=== PATIENT | male | born 1955 | race Caucasian/White ===

== ENCOUNTER 2019-10-20 14:17 | Outpatient (CLI) | payer MEDICARE, OTHER ==
[2019-10-20 16:21] LABS: Hemoglobin 14.5 g/dL (14.0-18.0); Mean Corpuscular HGB CONC 33.7 g/dL (32.0-36.0); Mean Corpuscular Hemoglobin 32.5 pg (27.0-31.0); Mean Corpuscular Volume 96.6 fL (78.0-98.0); Mean Platelet Volume 6.9 fL (7.4-10.4); Platelet Count 237 thou/uL (130-400); RBC Distribution Width 12.4 % (11.5-14.5); Red Blood Cell (RBC) Count 4.45 mill/uL (4.70-6.10); White Blood Cell (WBC) Count 9.5 thou/uL (4.8-10.8)
[2019-10-20 16:43] LABS: Anion Gap 14 mmol/L (10-20); BUN (Urea Nitrogen) 19 mg/dL (8.4-25.7); Calc. Creatinine Clearance 0 mL/min (70-130); Calcium 9.2 mg/dL (7.8-10.44); Carbon Dioxide 28 mmol/L (23-31); Chloride 98 mmol/L (98-107); Estimated GFR-MDRD 49; Glucose 90 mg/dL (80-115); Sodium 136 mmol/L (136-145)
--- NOTE | 2019-10-22 15:23 | EKG ---
Test Reason : Blood Pressure : / mmHG Vent. Rate : 064 BPM Atrial Rate : 064 BPM P-R Int : 188 ms QRS Dur : 114 ms QT Int : 390 ms P-R-T Axes : 021 037 067 degrees QTc Int : 402 ms Normal sinus rhythm Cannot rule out Anterior infarct , age undetermined Abnormal ECG No previous ECGs available Confirmed by DR. Niesha KING ([id number]) on 10/22/2019 3:23:20 PM Referred By: ZEESHAN Confirmed By:DR. Niesha KING
== END 2019-10-20 14:18 | disposition home or self-care (01) ==
LOC: LABBT 14:17
PROVIDERS: ATTEND Thoracic Surgery (Cardiothoracic Vascular Surgery)
DX: Z01.812 Encounter for preprocedural laboratory examination (principal); I65.29 Occlusion and stenosis of unspecified carotid artery
CPT/HCPCS: 80048; 85027; 93005; 93010

== ENCOUNTER 2019-10-20 15:00 | Inpatient (IN) | payer MEDICARE, OTHER ==
[2019-10-21] MEDS ORDERED: Fentanyl 100 MCG/2 ML VIAL ONE ×5 (06:30→14:28)
[2019-10-21] MEDS ORDERED: Phenylephrine HCL 10 MG/ML VIAL ONE (06:30)
[2019-10-21] MEDS ORDERED: Midazolam HCl 2 mg/2 ml Vial ONE (06:30)
[2019-10-21] MEDS ORDERED: Heparin 5,000 UNITS/ML VIAL ONE (06:32)
[2019-10-21] MEDS ORDERED: Protamine Sulfate 50 MG/5 ML VIAL ONE ×2 (06:32→08:52)
[2019-10-21] MEDS ORDERED: Protamine Sulfate 250 MG/25 ML VIAL ONE (08:52)
[2019-10-21] MEDS ORDERED: Lidocaine 1% PF 5 ML VIAL ONE (09:01)
[2019-10-21] MEDS ORDERED: Rocuronium Bromide 10 MG/ML (10ML VIAL) ONE (09:01)
[2019-10-21] MEDS ORDERED: Labetalol HCl 100 MG/20 ML VIAL ONE (09:01)
[2019-10-21] MEDS ORDERED: Ondansetron PF 4 MG/2 ML Vial ONE (09:01)
[2019-10-21] MEDS ORDERED: Succinylcholine Chloride 20 MG/ML 10 ml SYRINGE FS ONE (09:01)
[2019-10-21] MEDS ORDERED: Dexamethasone 20 MG/5 ML VIAL ONE (09:01)
[2019-10-21] MEDS ORDERED: PROPOFOL 200 MG/20 ML VIAL ONE (09:01)
[2019-10-21] MEDS ORDERED: Acetaminophen 325 MG TAB PO PRN (09:21)
[2019-10-21] MEDS ORDERED: Ondansetron PF 4 MG/2 ML Vial IVP PRN (09:21)
[2019-10-21] MEDS ORDERED: Fentanyl 100 MCG/2 ML VIAL SLOW IVP PRN ×2 (09:21)
[2019-10-21] MEDS ORDERED: Nitroglycerin 50 MG/250 ML BOT 250 ML IVPB PRN (09:21)
[2019-10-21] MEDS ORDERED: HYDROcodone/Acetaminophen 5/325 mg Tablet PO PRN ×2 (09:21)
[2019-10-21] MEDS ORDERED: Phenylephrine 10 MG/NS 250 ML 250 ML IVPB PRN (09:21)
[2019-10-21] MEDS ORDERED: hydrALAZINE 20 MG/ML VIAL ONE ×2 (09:37→11:40)
--- NOTE | 2019-10-21 13:19 | OP ---
DATE OF PROCEDURE: 10/21/2019 PREOPERATIVE DIAGNOSIS: Asymptomatic left carotid stenosis with right carotid occlusion. POSTOPERATIVE DIAGNOSIS: Asymptomatic left carotid stenosis with right carotid occlusion. PROCEDURE PERFORMED: Left carotid endarterectomy with patch angioplasty. ANESTHESIA: General endotracheal, Dr. Deep Corrales. ESTIMATED BLOOD LOSS: Less than 100. SPECIMENS: None. DESCRIPTION OF PROCEDURE: After consent was obtained, the patient was brought to the operating room and placed in supine position on the operating table. Appropriate central line and monitors were placed and general endotracheal anesthesia was induced. Head was rotated to the right. Neck was interrogated with ultrasound and the carotid bifurcation marked. The left neck was prepped and draped in usual sterile fashion. Skin incision was made in dissection through the platysma and was obtained with electrocautery. The left sternocleidomastoid was mobilized. The facial vein branches x2 were divided between clips and ties. Internal, common, and external carotid arteries were carefully exposed. Hypoglossal and vagus nerves were noted and protected. The patient was systemically heparinized. Internal, common, and external carotid arteries were serially clamped. Incision was made on the common carotid artery extended through the bulb distal to the plaque. A 10-[place] shunt was placed and antegrade flow re-established. The cerebral oximetry did drop during shunt placement, but the shunt placement was less than 2 minutes. Once antegrade flow was reestablished, the cerebral oximetry returned to baseline. The endarterectomy was performed with [place] hemostats. Medial fibers were debrided. An eversion endarterectomy of the external carotid artery was performed. A good tapered distal endpoint was obtained in the internal carotid artery. The artery was flushed with heparinized saline. Bovine pericardial patch was sewn in place with running 6-0 Prolene suture. Prior to completion of the patch suture line, shunt was clamped and removed. Arteries were back bled and flushed with heparinized saline. During completion of the patch suture line, the internal carotid artery was allowed to retrograde bleed. The internal carotid artery was re-clamped and the patch suture line tied. Antegrade flow was reestablished up the external carotid artery for 10 seconds followed by the internal carotid artery. Protamine was administered and hemostasis was ensured. Wounds were copiously irrigated, closed in layers and Dermabond applied to skin. The patient was awakened and neurologically intact at completion. The patient tolerated the procedure well, was transferred to the recovery room in stable condition. Job ID: [id number]
[2019-10-21] MEDS: CEFAZOLIN 2 GM in Premix Bag 1 BAG IVPB SCH ×2 (14:00→21:17)
[2019-10-21] MEDS: Sodium Chloride 0.9% 1,000 ML IV SCH ×2 (14:00→19:25)
[2019-10-21 17:58] VITALS: BMI 27.6
[2019-10-21] MEDS: hydrALAZINE 20 MG/ML VIAL SLOW IVP PRN (18:53)
[2019-10-21] MEDS ORDERED: Atorvastatin Calcium 10 MG TAB PO SCH (21:00)
[2019-10-22 04:18] VITALS: TEMP 98.1
[2019-10-22] MEDS: CEFAZOLIN 2 GM in Premix Bag 1 BAG IVPB SCH (05:46)
[2019-10-22] MEDS: hydrALAZINE 20 MG/ML VIAL SLOW IVP PRN (08:55)
[2019-10-22 08:56] VITALS: BP 166/59
[2019-10-22] MEDS ORDERED: Aspirin 81 mg Enteric Coated Tablet PO SCH (09:00)
[2019-10-22] MEDS ORDERED: Triamterene/Hydrochlorothiazide 37.5 mg/25 mg Tablet PO SCH (09:00)
[2019-10-22] MEDS ORDERED: FLU VACC TS2019-20(65YR UP)/PF 180 MCG/0.5 ML SYRINGE IM ONE (09:00)
[2019-10-22] MEDS ORDERED: Amlodipine 10 MG TAB PO SCH (09:00)
--- NOTE | 2019-10-22 09:03 | DIS ---
DATE OF ADMISSION: 10/21/2019 DATE OF DISCHARGE: 10/22/2019 DIAGNOSIS: Asymptomatic left carotid stenosis. PROCEDURE PERFORMED: Left carotid endarterectomy with patch angioplasty. DESCRIPTION OF HOSPITAL STAY: Mr. Ross was brought in electively for left carotid endarterectomy. He has done well and being discharged to home in good condition to follow up with me in 2 weeks. DISCHARGE MEDICATIONS: Unchanged from his home regimen. Job ID: [id number]
== END 2019-10-22 09:51 | disposition home or self-care (01) | DRG 39 ==
LOC: SURG A 10-21 06:03 → CCU 10-21 15:18
PROVIDERS: ADMIT Thoracic Surgery (Cardiothoracic Vascular Surgery); ATTEND Thoracic Surgery (Cardiothoracic Vascular Surgery)
PROC: 03CJ0ZZ Extirpation of Matter from Left Common Carotid Artery, Open Approach (ICD-10-PCS; principal; 2019-10-21)
PROC: 03UJ0JZ Supplement Left Common Carotid Artery with Synthetic Substitute, Open Approach (ICD-10-PCS; 2019-10-21)
DX: I65.23 Occlusion and stenosis of bilateral carotid arteries (principal); I10 Essential (primary) hypertension; E78.5 Hyperlipidemia, unspecified; I25.10 Atherosclerotic heart disease of native coronary artery without angina pectoris; J30.2 Other seasonal allergic rhinitis; F17.210 Nicotine dependence, cigarettes, uncomplicated; Z79.01 Long term (current) use of anticoagulants; Z79.899 Other long term (current) drug therapy
CPT/HCPCS: 80048; 85027; 93005; 94640; J0360; J0690; J1100; J1642; J1644; J2001; J2250; J2370; J2405; J2704; J2720; J3010; J7620

== ENCOUNTER 2021-09-14 12:27 | Outpatient (CLI) | payer MEDICARE, OTHER ==
[2021-09-14 14:10] LABS: Bilirubin Neg (Negative); Blood, Urine Negative (Negative); Clarity Clear (Clear); Glucose, Urine (Dipstick) Normal (Negative); Ketone, Urine Negative (Negative); Leukocyte Negative (Negative); Nitrite Negative (Negative); Protein, Urine (Dipstick) Negative (Neg-Trace); Specific Gravity, Urine 1.005 (1.002-1.036); Urobilinogen Normal mg/dL (Less than 2)
[2021-09-14 16:08] LABS: Hemoglobin 13.8 g/dL (13.5-17.5); Mean Corpuscular HGB CONC 33.5 g/dL (32.0-36.0); Mean Corpuscular Hemoglobin 31.2 pg (27.0-33.0); Mean Corpuscular Volume 93.2 fl (81.2-95.1); Mean Platelet Volume 9.5 fl (7.4-10.4); Platelet Count 188 10x3/uL (150-450); RBC Distribution Width 13.2 % (11.5-14.5); Red Blood Cell (RBC) Count 4.42 10x6/uL (4.32-5.72); White Blood Cell (WBC) Count 7.4 10x3/uL (3.5-10.5)
[2021-09-14 16:25] LABS: INR-International Normal Ratio 0.9; PTT 28.9 sec (22.0-33.0); Prothrombin Time 10.2 sec (9.5-12.1)
[2021-09-14 16:33] LABS: Anion Gap 15 mmol/L (10-20); BUN (Urea Nitrogen) 24 mg/dL (8.4-25.7); Calc. Creatinine Clearance 0 mL/min (70-130); Calcium 8.9 mg/dL (7.8-10.44); Carbon Dioxide 23 mmol/L (23-31); Chloride 98 mmol/L (98-107); Glucose 85 mg/dL (80-115); Potassium 3.9 mmol/L (3.5-5.1); Sodium 132 mmol/L (136-145)
[2021-09-14 16:53] LABS: Bacteria/HPF Rare-Few HPF (None Seen); RBC/HPF 0-3 HPF (0-3); Squamous Epithelial None Seen HPF (0-3); WBC/HPF None Seen HPF (0-3)
[2021-09-15 15:30] LABS: SARS-CoV-2 PCR by NAA Not Detected (NotDetected)
== END 2021-09-14 12:28 | disposition home or self-care (01) ==
LOC: LABBT 12:27
PROVIDERS: ATTEND Urology
DX: Z01.818 Encounter for other preprocedural examination (principal); Z12.5 Encounter for screening for malignant neoplasm of prostate; I65.23 Occlusion and stenosis of bilateral carotid arteries; R97.20 Elevated prostate specific antigen [PSA]; R35.0 Frequency of micturition; N28.9 Disorder of kidney and ureter, unspecified; N40.1 Benign prostatic hyperplasia with lower urinary tract symptoms; N52.9 Male erectile dysfunction, unspecified; Z72.0 Tobacco use; Z20.822 Contact with and (suspected) exposure to COVID-19
CPT/HCPCS: 71046; 80048; 81001; 85027; 85610; 85730; 87086; 93005; U0003; U0005; 93010

== ENCOUNTER 2021-09-19 05:56 | Day surgery (SDC) | payer MEDICARE, OTHER ==
[2021-09-17 12:16] VITALS: BMI 26.4
[2021-09-19] MEDS ORDERED: Propofol 500 MG/50 ML VIAL ONE (06:49)
[2021-09-19] MEDS ORDERED: cefTRIAXone\\ROCEPHIN 2 GM VIAL ONE (07:05)
[2021-09-19] MEDS ORDERED: Sodium Chloride 0.9% 100 ML ONE (07:05)
[2021-09-19] MEDS ORDERED: Levofloxacin 500 mg/D5W 100 ml Premix Bag ONE (07:05)
== END 2021-09-19 08:55 | disposition home or self-care (01) ==
LOC: SDC 05:56
PROVIDERS: ATTEND Urology
PROC: 0VB03ZX Excision of Prostate, Percutaneous Approach, Diagnostic (ICD-10-PCS; principal; 2021-09-19)
DX: C61 Malignant neoplasm of prostate (principal); N40.1 Benign prostatic hyperplasia with lower urinary tract symptoms; R35.0 Frequency of micturition; I10 Essential (primary) hypertension; E78.00 Pure hypercholesterolemia, unspecified; N52.9 Male erectile dysfunction, unspecified; F17.290 Nicotine dependence, other tobacco product, uncomplicated; I65.21 Occlusion and stenosis of right carotid artery; Z79.82 Long term (current) use of aspirin; Z79.899 Other long term (current) drug therapy; Z88.4 Allergy status to anesthetic agent
CPT/HCPCS: 88305; J0696; J1956; J2704; J3490

== ENCOUNTER 2021-10-16 09:03 | Outpatient (CLI) | payer MEDICARE, OTHER | END 2021-10-16 09:04 | disposition home or self-care (01) | LOC: CT 09:03 | PROVIDERS: ATTEND Urology | DX: C61 Malignant neoplasm of prostate (principal); N28.9 Disorder of kidney and ureter, unspecified; R97.20 Elevated prostate specific antigen [PSA]; R35.0 Frequency of micturition; N40.1 Benign prostatic hyperplasia with lower urinary tract symptoms | CPT/HCPCS: 74176; 78306; A9503 ==

== ENCOUNTER 2022-01-24 06:56 | Outpatient (CLI) | payer MEDICARE, OTHER | END 2022-01-24 06:57 | disposition home or self-care (01) | LOC: LABBT 06:56 | PROVIDERS: ATTEND Urology | DX: Z01.818 Encounter for other preprocedural examination (principal); C61 Malignant neoplasm of prostate; N28.9 Disorder of kidney and ureter, unspecified; N52.9 Male erectile dysfunction, unspecified; I65.23 Occlusion and stenosis of bilateral carotid arteries; I10 Essential (primary) hypertension; I25.10 Atherosclerotic heart disease of native coronary artery without angina pectoris; N40.1 Benign prostatic hyperplasia with lower urinary tract symptoms; R35.0 Frequency of micturition; Z20.822 Contact with and (suspected) exposure to COVID-19 | CPT/HCPCS: 71046; 80053; 81001; 85027; 85610; 85730; 86850; 86900; 86901; 87086; U0003; U0005 ==

== ENCOUNTER 2022-01-28 06:07 | Inpatient (IN) | payer MEDICARE, OTHER ==
[2022-01-24 08:30] LABS: Bilirubin Neg (Negative); Blood, Urine Negative (Negative); Clarity Clear (Clear); Glucose, Urine (Dipstick) Normal (Negative); Ketone, Urine Negative (Negative); Leukocyte Negative (Negative); Nitrite Negative (Negative); Protein, Urine (Dipstick) Negative (Neg-Trace); Urobilinogen Normal mg/dL (Less than 2)
[2022-01-24 08:41] LABS: ALT (SGPT) 16 U/L (8-55); AST (SGOT) 19 U/L (5-34); Albumin 4.4 g/dL (3.4-4.8); Alkaline Phosphatase 66 U/L (40-110); Anion Gap 13 mmol/L (10-20); BUN (Urea Nitrogen) 24 mg/dL (8.4-25.7); Bilirubin, Total 0.9 mg/dL (0.2-1.2); Calc. Creatinine Clearance 0 mL/min (70-130); Calcium 9.5 mg/dL (7.8-10.44); Carbon Dioxide 28 mmol/L (23-31); Chloride 97 mmol/L (98-107); Glucose 93 mg/dL (80-115); INR-International Normal Ratio 0.9; PTT 28.5 sec (22.0-33.0); Potassium 4.6 mmol/L (3.5-5.1); Protein, Total 7.4 g/dL (5.8-8.1); Prothrombin Time 9.9 sec (9.5-12.1); Sodium 133 mmol/L (136-145)
[2022-01-24 08:46] LABS: Hemoglobin 14.7 g/dL (13.5-17.5); Mean Corpuscular HGB CONC 33.9 g/dL (32.0-36.0); Mean Corpuscular Volume 94.6 fl (81.2-95.1); Mean Platelet Volume 9.1 fl (7.4-10.4); Platelet Count 187 10x3/uL (150-450); RBC Distribution Width 13.7 % (11.5-14.5); Red Blood Cell (RBC) Count 4.59 10x6/uL (4.32-5.72); White Blood Cell (WBC) Count 6.5 10x3/uL (3.5-10.5)
[2022-01-24 09:18] LABS: Bacteria/HPF None Seen HPF (None Seen); RBC/HPF 0-3 HPF (0-3); Squamous Epithelial None Seen HPF (0-3); WBC/HPF None Seen HPF (0-3)
[2022-01-24 17:50] LABS: SARS-CoV-2 PCR by NAA Not Detected (NotDetected)
[2022-01-28] MEDS ORDERED: Fentanyl 250 MCG/5 ML VIAL ONE (06:39)
[2022-01-28] MEDS ORDERED: Midazolam HCl 2 mg/2 ml Vial ONE ×2 (06:39→07:36)
[2022-01-28] MEDS ORDERED: Bupivacaine 0.25% 10 ML VIAL ONE (06:42)
[2022-01-28] MEDS ORDERED: Lidocaine 1% w/Epinephrine 1:100K 20 ML VIAL ONE (06:42)
[2022-01-28] MEDS ORDERED: Lidocaine 1% MPF 2 ML VIAL ONE (06:58)
[2022-01-28] MEDS ORDERED: Levofloxacin 500 mg/D5W 100 ml Premix Bag ONE (07:21)
[2022-01-28] MEDS ORDERED: Sodium Chloride 0.9% 100 ML ONE (07:31)
[2022-01-28] MEDS ORDERED: ceFOXitin 1 GM VIAL ONE (07:31)
[2022-01-28] MEDS ORDERED: Fentanyl 100 MCG/2 ML VIAL ONE (07:36)
[2022-01-28] MEDS ORDERED: Ropivacaine 0.5% HCl/PF (150 MG/30 ML VIAL) ONE ×2 (07:45→09:15)
[2022-01-28] MEDS ORDERED: PROPOFOL 200 MG/20 ML VIAL ONE (07:54)
[2022-01-28] MEDS ORDERED: Dexamethasone 20 MG/5 ML VIAL ONE (07:54)
[2022-01-28] MEDS ORDERED: Rocuronium Bromide 10 MG/ML (10ML VIAL) ONE (07:54)
[2022-01-28] MEDS ORDERED: Ondansetron PF 4 MG/2 ML Vial ONE (07:54)
[2022-01-28] MEDS ORDERED: ePHEDrine 50 MG/ML VIAL ONE (07:54)
[2022-01-28] MEDS ORDERED: Vecuronium 10 MG VIAL ONE (07:54)
[2022-01-28] MEDS ORDERED: Glycopyrrolate 0.2 MG/ML 5 ML SYRINGE ONE (07:54)
[2022-01-28] MEDS ORDERED: Lidocaine 1% PF 5 ML VIAL ONE (07:54)
[2022-01-28] MEDS ORDERED: ePHEDrine Sulfate 50 MG/10 ML VIAL ONE (10:50)
[2022-01-28] MEDS ORDERED: B & O ONE (12:41)
[2022-01-28] MEDS ORDERED: SUGAMMADEX SODIUM 200 MG/2 ML VIAL ONE (13:08)
[2022-01-28] MEDS ORDERED: Mag-Al 1200 mg/1200 mg/30 ML UDCUP PO PRN (13:16)
[2022-01-28] MEDS ORDERED: HYDROcodone/Acetaminophen 10/325 mg Tablet PO PRN (13:16)
[2022-01-28] MEDS ORDERED: Morphine 2 MG/ML VIAL SLOW IVP PRN (13:16)
[2022-01-28] MEDS ORDERED: diphenhydrAMINE 50 MG/ML VIAL IVP PRN (13:16)
[2022-01-28] MEDS ORDERED: Morphine 4 MG/ML VIAL SLOW IVP PRN (13:16)
[2022-01-28] MEDS ORDERED: Zolpidem Tartrate 5 MG TAB PO PRN (13:16)
[2022-01-28] MEDS ORDERED: Phenazopyridine HCl 100 MG TAB PO PRN (13:24)
[2022-01-28 13:50] LABS: #Basophils 0.2 thou/uL (0.0-0.2); #Lymphocytes 0.2 thou/uL (1.20-3.40); #Monocytes 0.6 thou/uL (0.11-0.59); #Neutrophils 8.2 thou/uL (1.40-6.50); %Basophils 1.8 % (0.0-1.0); %Eosinophils 0.1 % (0.0-10.0); %Lymphocytes 1.8 % (21.0-51.0); %Neutrophils 90.2 % (42.0-75.0); Hemoglobin 12.1 g/dL (14.0-18.0); Mean Corpuscular HGB CONC 32.9 g/dL (32.0-36.0); Mean Corpuscular Hemoglobin 33.2 pg (27.0-31.0); Mean Platelet Volume 6.6 fL (7.4-10.4); Platelet Count 167 thou/uL (130-400); Red Blood Cell (RBC) Count 3.65 mill/uL (4.70-6.10); White Blood Cell (WBC) Count 9.1 thou/uL (4.8-10.8)
[2022-01-28 14:09] LABS: Anion Gap 11 mmol/L (10-20); BUN (Urea Nitrogen) 23 mg/dL (8.4-25.7); Calc. Creatinine Clearance 55 mL/min (70-130); Calcium 8.1 mg/dL (7.8-10.44); Carbon Dioxide 23 mmol/L (23-31); Chloride 102 mmol/L (98-107); Glucose 133 mg/dL (80-115); Potassium 4.9 mmol/L (3.5-5.1); Sodium 131 mmol/L (136-145)
[2022-01-28] MEDS: Sodium Chloride 0.9% 1,000 ML IV SCH ×2 (18:07→20:32)
[2022-01-28 18:18] VITALS: BMI 26.8
[2022-01-28] MEDS: Rosuvastatin 5 MG TAB PO SCH (20:31)
[2022-01-28] MEDS: hydrALAZINE 25 MG TAB PO SCH (20:31)
[2022-01-28] MEDS: Docusate 100 MG CAP PO SCH (20:31)
[2022-01-28] MEDS: Trospium 20 MG TAB PO SCH (20:31)
[2022-01-28] MEDS: HYDROcodone/Acetaminophen 10/325 mg Tablet PO PRN (20:36)
[2022-01-28] MEDS ORDERED: Hydrochlorothiazide 25 MG TAB PO SCH (21:00)
[2022-01-28] MEDS ORDERED: Famotidine/PF 20 mg/2ml Vial SLOW IVP SCH (21:00)
[2022-01-29 04:38] LABS: #Lymphocytes 0.5 thou/uL (1.20-3.40); #Neutrophils 11.1 thou/uL (1.40-6.50); %Eosinophils 0.1 % (0.0-10.0); %Lymphocytes 3.7 % (21.0-51.0); %Monocytes 8.2 % (0.0-10.0); %Neutrophils 88.1 % (42.0-75.0); Hemoglobin 12.7 g/dL (14.0-18.0); Mean Corpuscular HGB CONC 32.9 g/dL (32.0-36.0); Mean Corpuscular Hemoglobin 33.3 pg (27.0-31.0); Mean Platelet Volume 6.9 fL (7.4-10.4); Platelet Count 171 thou/uL (130-400); RBC Distribution Width 13.1 % (11.5-14.5); Red Blood Cell (RBC) Count 3.81 mill/uL (4.70-6.10); White Blood Cell (WBC) Count 12.5 thou/uL (4.8-10.8)
[2022-01-29 05:02] LABS: Anion Gap 11 mmol/L (10-20); BUN (Urea Nitrogen) 16 mg/dL (8.4-25.7); Calc. Creatinine Clearance 65 mL/min (70-130); Calcium 8.5 mg/dL (7.8-10.44); Carbon Dioxide 21 mmol/L (23-31); Chloride 103 mmol/L (98-107); Glucose 145 mg/dL (80-115); Potassium 4.4 mmol/L (3.5-5.1); Sodium 131 mmol/L (136-145)
[2022-01-29] MEDS: cefTRIAXone\\ROCEPHIN 1 GM in Sodium Chloride 0.9% 100 ML IVPB SCH (06:29)
[2022-01-29] MEDS: Sodium Chloride 0.9% 1,000 ML IV SCH (06:32)
[2022-01-29] MEDS: Amlodipine 10 MG TAB PO SCH (09:28)
[2022-01-29] MEDS: Trospium 20 MG TAB PO SCH ×2 (09:28→20:32)
[2022-01-29] MEDS: hydrALAZINE 25 MG TAB PO SCH ×2 (09:29→20:31)
[2022-01-29] MEDS: Aspirin 81 mg Enteric Coated Tablet PO SCH (09:29)
[2022-01-29] MEDS: Triamterene/Hydrochlorothiazide 37.5 mg/25 mg Tablet PO SCH (09:30)
[2022-01-29] MEDS: Docusate 100 MG CAP PO SCH ×2 (09:30→20:31)
[2022-01-29] MEDS: HYDROcodone/Acetaminophen 10/325 mg Tablet PO PRN ×2 (10:33→20:30)
[2022-01-29] MEDS: Famotidine/PF 20 mg/2ml Vial SLOW IVP SCH (20:31)
[2022-01-29] MEDS: Rosuvastatin 5 MG TAB PO SCH (20:32)
[2022-01-30 03:54] LABS: #Monocytes 1.3 thou/uL (0.11-0.59); #Neutrophils 9.8 thou/uL (1.40-6.50); %Basophils 0.1 % (0.0-1.0); %Eosinophils 0.4 % (0.0-10.0); %Lymphocytes 8.2 % (21.0-51.0); %Monocytes 10.7 % (0.0-10.0); %Neutrophils 80.6 % (42.0-75.0); Hemoglobin 12.2 g/dL (14.0-18.0); Mean Corpuscular HGB CONC 32.6 g/dL (32.0-36.0); Mean Corpuscular Hemoglobin 33.2 pg (27.0-31.0); Mean Platelet Volume 6.8 fL (7.4-10.4); Platelet Count 143 thou/uL (130-400); RBC Distribution Width 13.1 % (11.5-14.5); Red Blood Cell (RBC) Count 3.68 mill/uL (4.70-6.10); White Blood Cell (WBC) Count 12.1 thou/uL (4.8-10.8)
[2022-01-30 04:14] LABS: Anion Gap 10 mmol/L (10-20); BUN (Urea Nitrogen) 20 mg/dL (8.4-25.7); Calc. Creatinine Clearance 67 mL/min (70-130); Calcium 8.6 mg/dL (7.8-10.44); Carbon Dioxide 27 mmol/L (23-31); Chloride 99 mmol/L (98-107); Glucose 98 mg/dL (80-115); Potassium 3.9 mmol/L (3.5-5.1); Sodium 132 mmol/L (136-145)
[2022-01-30] MEDS: cefTRIAXone\\ROCEPHIN 1 GM in Sodium Chloride 0.9% 100 ML IVPB SCH (05:29)
[2022-01-30] MEDS ORDERED: Bisacodyl 10 MG SUPP PR SCH (07:30)
[2022-01-30] MEDS: hydrALAZINE 25 MG TAB PO SCH ×2 (09:13→21:29)
[2022-01-30] MEDS: Triamterene/Hydrochlorothiazide 37.5 mg/25 mg Tablet PO SCH (09:13)
[2022-01-30] MEDS: Aspirin 81 mg Enteric Coated Tablet PO SCH (09:13)
[2022-01-30] MEDS: Trospium 20 MG TAB PO SCH ×2 (09:13→21:29)
[2022-01-30] MEDS: Amlodipine 10 MG TAB PO SCH (09:14)
[2022-01-30] MEDS: Famotidine/PF 20 mg/2ml Vial SLOW IVP SCH ×2 (09:14→21:29)
[2022-01-30] MEDS: Docusate 100 MG CAP PO SCH ×2 (09:14→21:29)
[2022-01-30] MEDS: HYDROcodone/Acetaminophen 10/325 mg Tablet PO PRN ×2 (17:30→21:36)
[2022-01-30] MEDS: Rosuvastatin 5 MG TAB PO SCH (21:29)
[2022-01-31 04:22] LABS: #Eosinphils 0.1 thou/uL (0.0-0.7); #Monocytes 1.1 thou/uL (0.11-0.59); #Neutrophils 5.8 thou/uL (1.40-6.50); %Basophils 0.1 % (0.0-1.0); %Eosinophils 1.2 % (0.0-10.0); %Lymphocytes 12.5 % (21.0-51.0); %Monocytes 13.3 % (0.0-10.0); %Neutrophils 72.9 % (42.0-75.0); Hemoglobin 11.9 g/dL (14.0-18.0); Mean Corpuscular HGB CONC 33.5 g/dL (32.0-36.0); Mean Corpuscular Hemoglobin 33.7 pg (27.0-31.0); Platelet Count 155 thou/uL (130-400); RBC Distribution Width 12.9 % (11.5-14.5); Red Blood Cell (RBC) Count 3.53 mill/uL (4.70-6.10)
[2022-01-31 04:39] LABS: Anion Gap 12 mmol/L (10-20); BUN (Urea Nitrogen) 17 mg/dL (8.4-25.7); Calc. Creatinine Clearance 67 mL/min (70-130); Calcium 8.5 mg/dL (7.8-10.44); Carbon Dioxide 26 mmol/L (23-31); Chloride 97 mmol/L (98-107); Glucose 84 mg/dL (80-115); Potassium 3.9 mmol/L (3.5-5.1); Sodium 131 mmol/L (136-145)
[2022-01-31] MEDS: cefTRIAXone\\ROCEPHIN 1 GM in Sodium Chloride 0.9% 100 ML IVPB SCH (05:59)
[2022-01-31] MEDS: Docusate 100 MG CAP PO SCH (09:29)
[2022-01-31] MEDS: Triamterene/Hydrochlorothiazide 37.5 mg/25 mg Tablet PO SCH (09:30)
[2022-01-31] MEDS: Amlodipine 10 MG TAB PO SCH (09:30)
[2022-01-31] MEDS: Famotidine/PF 20 mg/2ml Vial SLOW IVP SCH (09:30)
[2022-01-31] MEDS: hydrALAZINE 25 MG TAB PO SCH (09:30)
[2022-01-31] MEDS: Aspirin 81 mg Enteric Coated Tablet PO SCH (09:30)
[2022-01-31] MEDS: Trospium 20 MG TAB PO SCH (09:30)
[2022-01-31 12:09] VITALS: BP 156/76; TEMP 98.1
== END 2022-01-31 12:00 | disposition home or self-care (01) | DRG 707 ==
LOC: SDC 06:07 → 2NO 13:16
PROVIDERS: ADMIT Urology; ATTEND Urology
PROC: 0VT04ZZ Resection of Prostate, Percutaneous Endoscopic Approach (ICD-10-PCS; principal; 2022-01-28)
PROC: 0VB34ZZ Excision of Bilateral Seminal Vesicles, Percutaneous Endoscopic Approach (ICD-10-PCS; 2022-01-28)
PROC: 8E0W4CZ Robotic Assisted Procedure of Trunk Region, Percutaneous Endoscopic Approach (ICD-10-PCS; 2022-01-28)
PROC: 0VBQ4ZZ Excision of Bilateral Vas Deferens, Percutaneous Endoscopic Approach (ICD-10-PCS; 2022-01-28)
DX: C61 Malignant neoplasm of prostate (principal); I50.32 Chronic diastolic (congestive) heart failure; I25.10 Atherosclerotic heart disease of native coronary artery without angina pectoris; E78.00 Pure hypercholesterolemia, unspecified; I11.0 Hypertensive heart disease with heart failure; F17.290 Nicotine dependence, other tobacco product, uncomplicated; R35.0 Frequency of micturition; N40.1 Benign prostatic hyperplasia with lower urinary tract symptoms; N52.9 Male erectile dysfunction, unspecified; I65.23 Occlusion and stenosis of bilateral carotid arteries; Z20.822 Contact with and (suspected) exposure to COVID-19; Z79.899 Other long term (current) drug therapy; Z79.82 Long term (current) use of aspirin; Z98.890 Other specified postprocedural states
CPT/HCPCS: 36415; 80048; 80053; 81001; 82570; 85025; 85027; 85610; 85730; 86850; 86900; 86901; 87086; 88309; C1713; C1776; J0694; J0696; J1100; J1642; J1956; J2250; J2405; J2704; J2795; J3010; J3490; J7050; S0020; S0028; U0003; U0005

== ENCOUNTER 2022-02-12 09:32 | Outpatient (CLI) | payer MEDICARE, OTHER ==
[~2022-02-12 09:32] MED LIST: Iopamidol-370 76% 500 ML 1 ML ONE
== END 2022-02-12 09:33 | disposition home or self-care (01) ==
LOC: RAD 09:32
PROVIDERS: ATTEND Urology
DX: C61 Malignant neoplasm of prostate (principal)
CPT/HCPCS: 51600; 74430; Q9967